=== PATIENT | male | born 1985 | race Caucasian/White ===

== ENCOUNTER 2021-05-08 19:45 | Emergency (ER) | payer OTHER ==
[~2021-05-08] VITALS: Ht 170.2 cm; Wt 100.7 kg
[2021-05-08 19:56] VITALS: BP_SYST 213
--- NOTE | 2021-05-08 20:10 | NUR ---
# 18 gauge angiocath placed to LAC. Use of asceptic technique. Opsite placed over site. Blood return noted. Blood for lab drawn from site. Flushed with 10 cc of normal saline. No evidence of infiltration noted. Patient tolerated well.
--- NOTE | 2021-05-08 20:12 | NUR ---
ER Dr. Jean-Baptiste at bedside examining patient.
--- NOTE | 2021-05-08 20:13 | NUR ---
PATIENT TO CT SCAN WITH KEVIN
--- NOTE | 2021-05-08 20:22 | NUR ---
Placed in room 03 . Placed on threat monitoring analyst, blood pressure machine and pulse oximeter. To gown for exam. Side rails up. Report given to WOOD STOVER
--- NOTE | 2021-05-08 20:30 | NUR ---
Assumed total care of patient. Patient AAO x4 BIB BLS for high blood pressure after being seen and dropped off at [place]. Patient reports constant migraines since 2013. Patient rates current pain 4/10. Patient able to communicate using complete sentences and train of thought. Patient denies blurry vision, nausea, vomiting, SOB, chest pain, fever, chills. Patient IV site patent with no signs of infiltration or infection. Patient placed on rn cardiac rehab, VSS, breathing even and unlabored, no signs of acute distress noted. Will continue to monitor.
[2021-05-08 20:31] LABS: BASOPHILS # (AUTO) 0.1 K/uL (0.0-0.2); BASOPHILS % (AUTO) 1.1 % (0.0-2.0); EOSINOPHILS # (AUTO) 0.4 K/uL (0.0-0.4); HEMOGLOBIN 15.1 g/dL (14.0-18.0); LYMPHOCYTES # (AUTO) 2.9 K/uL (1.0-5.5); LYMPHOCYTES % (AUTO) 38.7 % (20.5-51.5); MEAN CORPUSCULAR HEMOGLOBIN 31 pg (27-31); MEAN CORPUSCULAR HGB CONC 34 % (32-36); MEAN CORPUSCULAR VOLUME 92 fL (79.0-98.0); MONOCYTES # (AUTO) 0.6 K/uL (0.0-1.0); MONOCYTES % (AUTO) 7.5 % (1.7-9.3); NEUTROPHILS # (AUTO) 3.5 K/uL (1.8-7.7); NEUTROPHILS % (AUTO) 46.7 % (40.0-70.0); PLATELET COUNT (AUTO) 232 K/uL (130-430); RED CELL DISTRIBUTION WIDTH 13.5 % (9.0-15.0); WHITE BLOOD COUNT (AUTO) 7.4 K/uL (4.8-10.8)
[2021-05-08 20:53] LABS: CALCIUM 8.7 mg/dL (8.4-11.0); CREATININE 1.12 mg/dL (0.55-1.30); POTASSIUM 3.3 mmol/L (3.5-5.1)
[2021-05-08 21:06] LABS: ALBUMIN 3.8 g/dL (3.4-4.8); TOTAL BILIRUBIN 0.2 mg/dL (0.0-1.0)
--- NOTE | 2021-05-08 21:40 | NUR ---
Dr. Jean-Baptiste notified of blood pressure of 186/106. Orders received.
[2021-05-08] MEDS ORDERED: HYDROCHLOROTHIAZIDE 12.5 MG CAPSULE (HCTZ) PO ONE (21:45)
--- NOTE | 2021-05-08 21:50 | NUR ---
Patient medicated per MD orders. Patient tolerated well. Will continue to monitor blood pressure.
--- NOTE | 2021-05-08 21:51 | NUR ---
Patients mother contacted, she will arrive to hospital in 30 mins to pick son up.
--- NOTE | 2021-05-08 22:13 | NUR ---
Patient asked to go restroom, got up from [facility], became verbally aggressive with staff, and walked out of ER. Patient IV is still placed in left AC. [facility] contacted about patient leaving ER with IV intact.
[2021-05-08 22:22] LABS: BILIRUBIN,URINE NEGATIVE (NEGATIVE); BLOOD, URINE NEGATIVE (NEGATIVE); CLARITY/URINE CLEAR (CLEAR); COLOR,URINE YELLOW (YELLOW); GLUCOSE,URINE NEGATIVE (NEGATIVE); KETONES,URINE NEGATIVE (NEGATIVE); LEUKOCYTE ESTERASE ,URINE NEGATIVE (NEGATIVE); NITRITE, URINE NEGATIVE (NEGATIVE); PROTEIN URINE NEGATIVE (NEGATIVE); UROBILINOGEN,URINE 0.2 (0.2-1.0)
[2021-05-08 22:50] LABS: BARBITURATE, URINE NEGATIVE (NEG <=200); BENZODIAZEPINE, URINE NEGATIVE (NEG <=150); CANNABINOID, URINE POSITIVE (NEG <=50); COCAINE, URINE NEGATIVE (NEG <=150); METHAMPHETAMINES SCREEN,URINE NEGATIVE (NEG <=500); OPIATE, URINE NEGATIVE (NEG <=100); PHENCYCLIDINE SCREEN,URINE NEGATIVE (NEG <=25); UR TRICYCLIC ANTIDEPRESSANTS NEGATIVE (NEG <=300); URINE AMPHETAMINE NEGATIVE (NEG <=500); URINE METHADONE NEGATIVE (NEG <=200); URINE OXYCODONE SCREEN NEGATIVE (NEG <=100); URINE PROPOXYPHENE SCREEN NEGATIVE (NEG <=300)
[2021-05-08 23:47] VITALS: BP_SYST 155
--- NOTE | 2021-05-08 23:47 | NUR ---
Patient returned accompanied by parents. Patients IV has been discontinued. Bleeding controlled. Discharge paperwork given to patient and demonstrated understanding. Patient ambulatory with steady gait.
== END 2021-05-08 23:47 | disposition home or self-care (01) ==
LOC: SED 19:45
DX: I10 Essential (primary) hypertension (principal); R51.9 Headache, unspecified; Z79.899 Other long term (current) drug therapy
CPT/HCPCS: 36415; 70450-TC; 76376; 80053; 80307; 81003; 84484; 85025; 93005; 99285